=== PATIENT | male | born 1960 | race Caucasian/White ===

== ENCOUNTER 2017-05-21 23:26 | Emergency (ER) | payer MEDICAID ==
[~2017-05-21] VITALS: Ht 170.2 cm; Wt 71.6 kg
[~2017-05-21 23:26] MED LIST: ACAM333T7 PO; BUPR150T73 PO; DIPH1TAB PO; HYDR25CA PO; TRAZ100T15 PO
[2017-05-21 23:29] VITALS: BP 127/80
[2017-05-22] MEDS ORDERED: KETOROLAC 30 MG/1 ML ONE (00:19)
[2017-05-22] MEDS ORDERED: METHOCARBAMOL 750 MG TABLET ONE ×2 (00:19)
[2017-05-22] MEDS ORDERED: KETOROLAC 30 MG/1 ML IM ONE (00:30)
[2017-05-22] MEDS ORDERED: METHOCARBAMOL 750 MG TABLET PO ONE (00:30)
[2017-05-22] MEDS ORDERED: TAMS0.4C2 PO (00:41)
[2017-05-22] MEDS ORDERED: BUPR150T73 PO (00:41)
== END 2017-05-22 01:55 | disposition home or self-care (01) ==
LOC: ED 05-22 01:42
DX: M54.5 Low back pain (principal); M62.830 Muscle spasm of back
CPT/HCPCS: 72110; 96372; 99284; J1885

== ENCOUNTER 2017-06-07 14:27 | Emergency (ER) | payer MEDICAID ==
[~2017-06-07] VITALS: Ht 170.2 cm; Wt 71.9 kg
[~2017-06-07 14:27] MED LIST changes: +TAMS0.4C2 PO
[2017-06-07 14:28] VITALS: BP 96/62
[2017-06-07] MEDS ORDERED: KETOROLAC 30 MG/1 ML IM ONE (16:00)
[2017-06-07] MEDS ORDERED: KETOROLAC 30 MG/1 ML ONE (16:08)
[2017-06-07] MEDS ORDERED: DIAZEPAM 5 MG/ML, 2ML IM STA (16:09)
[2017-06-07] MEDS ORDERED: DIAZEPAM 5 MG TABLET ONE (16:27)
== END 2017-06-07 17:46 | disposition home or self-care (01) ==
LOC: ED 16:39
DX: M54.5 Low back pain (principal); Z85.07 Personal history of malignant neoplasm of pancreas
CPT/HCPCS: 96372; 99284; J1885; J3360

== ENCOUNTER 2017-06-19 13:00 | Emergency (ER) | payer MEDICAID ==
[~2017-06-19] VITALS: Ht 170.2 cm; Wt 68.4 kg
[2017-06-19 13:09] VITALS: BP 99/46
[2017-06-19] MEDS ORDERED: SODIUM CHLORIDE FLUSH 10ML SYR IVF ONE (13:30)
[2017-06-19] MEDS ORDERED: SODIUM CHLORIDE 0.9% 1,000ML IVBOLUS ONE (13:30)
[2017-06-19 13:49] LABS: BLOOD UREA NITROGEN 16 mg/dL (7-18)
[2017-06-19 13:54] LABS: ASPARTATE AMINO TRANSFERASE 24 U/L (15-37)
[2017-06-19] MEDS ORDERED: POTASSIUM CHLORIDE 20 MEQ TAB.ER.PRT PO ONE (14:30)
== END 2017-06-19 14:19 | disposition left against medical advice (07) ==
LOC: ED 14:13
DX: E87.6 Hypokalemia (principal); R53.1 Weakness; Z59.0 Homelessness
CPT/HCPCS: 36415; 80053; 85025; 93005; 96360; 99285; J7030

== ENCOUNTER 2017-12-03 21:39 | Inpatient (IN) | payer MEDICAID ==
[~2017-12-03] VITALS: Ht 170.2 cm; Wt 62.8 kg
[2017-12-03] MEDS ORDERED: DIAZ5TAB4 PO (21:49)
[2017-12-03] MEDS ORDERED: CYCL5TAB PO (21:49)
[2017-12-03] MEDS ORDERED: DIPH1TAB6 PO (21:49)
[2017-12-03] MEDS ORDERED: SODIUM CHLORIDE 0.9% 1,000ML IVBOLUS ONE ×2 (22:00→23:30)
[2017-12-03] MEDS ORDERED: ONDANSETRON 2MG/ML, 2ML IVPush ONE (22:00)
[2017-12-03] MEDS ORDERED: SODIUM CHLORIDE FLUSH 10ML SYR IVF ONE (22:00)
[2017-12-03] MEDS ORDERED: ONDANSETRON 2MG/ML, 2ML ONE (22:03)
[2017-12-03 22:33] LABS: BASOPHILS % (AUTO) 0 % (0-1); EOSINOPHILS % (AUTO) 0 % (1-7); LYMPHOCYTES # (AUTO) 0.22 x10^3/uL (1-3.4); LYMPHOCYTES % (AUTO) 3 % (22-44); MD NO; MEAN CORPUSCULAR HEMOGLOBIN 31.3 pg (27.5-34.5); MEAN CORPUSCULAR HGB CONC 33.1 g/dL (33.2-36.2); MEAN CORPUSCULAR VOLUME 94.6 fL (81-97); MEAN PLATELET VOLUME 8.3 fL (7.4-10.4); MONOCYTES % (AUTO) 9 % (2-9); NEUTROPHILS # (AUTO) 6.71 x10^3/uL (1.8-6.8); NEUTROPHILS % (AUTO) 88 % (42-75); PLATELET COUNT 205 x10^3/uL (130-400); RED BLOOD COUNT 4.23 x10^6/uL (4.38-5.82); RED CELL DISTRIBUTION WIDTH 15.6 % (9.4-14.8)
[2017-12-03 22:44] LABS: INTERNATIONAL NORMALIZED RATIO 0.92 (0.93-1.1); PROTHROMBIN TIME 9.6 Seconds (9.6-11.5)
[2017-12-03 22:48] LABS: ALANINE AMINOTRANSFERASE 24 U/L (12-78); ALBUMIN 4.3 g/dL (3.4-5.0); ANION GAP 24 mmol/L (5-15); CALCIUM 8.6 mg/dL (8.5-10.1); CHLORIDE 94 mmol/L (98-107); CREATININE 3.03 mg/dL (0.7-1.3)
[2017-12-03 22:50] LABS: ALKALINE PHOSPHATASE 62 U/L (45-117); BILIRUBIN,TOTAL 2.6 mg/dL (0.2-1.0)
[2017-12-04] MEDS ORDERED: PANTOPRAZOLE 80 MG in SODIUM CHLORIDE 0.9% 100 ML IV SCH (00:30)
[2017-12-04] MEDS ORDERED: PANTOPRAZOLE 80 MG in SODIUM CHLORIDE 0.9% 50 ML IV ONE (00:30)
[2017-12-04 01:50] LABS: ACETONE, SERUM Moderate(40mg/dL) mg/dL (Negative)
[2017-12-04] MEDS ORDERED: NS + 20MEQ KCL 1,000 ML IV SCH (02:28)
[2017-12-04] MEDS ORDERED: OXYcodone IR 5MG TABLET PO PRN (02:30)
[2017-12-04] MEDS ORDERED: NITROGLYCERIN 0.4 MG BOTTLE (25 TABS) SL PRN (02:30)
[2017-12-04] MEDS ORDERED: LORazepam 1MG TABLET PO PRN ×4 (02:30)
[2017-12-04] MEDS ORDERED: ENALAPRILAT 1.25 MG/ML, 2ML IVPush PRN (02:30)
[2017-12-04] MEDS ORDERED: PROMETHAZINE 25 MG/ML, 1ML IM PRN (02:30)
[2017-12-04] MEDS ORDERED: ONDANSETRON 2MG/ML, 2ML IVPush PRN (02:30)
[2017-12-04] MEDS ORDERED: LORazepam 2 MG/ML, 1ML IV PRN ×5 (02:30)
[2017-12-04] MEDS ORDERED: POLYETHYLENE GLYCOL 17 GM PACKET PO PRN (02:30)
[2017-12-04] MEDS ORDERED: ONDANSETRON ODT 4 MG PO PRN (02:30)
[2017-12-04 04:10] VITALS: BP 106/66
[2017-12-04 06:03] LABS: BASOPHILS # (AUTO) 0.04 x10^3/uL (0-0.1); BASOPHILS % (AUTO) 1 % (0-1); EOSINOPHILS % (AUTO) 0 % (1-7); LYMPHOCYTES # (AUTO) 0.47 x10^3/uL (1-3.4); LYMPHOCYTES % (AUTO) 8 % (22-44); MD NO; MEAN CORPUSCULAR HGB CONC 34.8 g/dL (33.2-36.2); MEAN CORPUSCULAR VOLUME 91.9 fL (81-97); MEAN PLATELET VOLUME 7.7 fL (7.4-10.4); MONOCYTES # (AUTO) 0.86 x10^3/uL (0.2-0.8); MONOCYTES % (AUTO) 15 % (2-9); NEUTROPHILS # (AUTO) 4.42 x10^3/uL (1.8-6.8); NEUTROPHILS % (AUTO) 76 % (42-75); PLATELET COUNT 163 x10^3/uL (130-400); RED BLOOD COUNT 3.45 x10^6/uL (4.38-5.82); RED CELL DISTRIBUTION WIDTH 15.4 % (9.4-14.8)
[2017-12-04 06:12] LABS: ANION GAP 11 mmol/L (5-15); CHLORIDE 109 mmol/L (98-107)
[2017-12-04 06:13] LABS: CREATININE 1.67 mg/dL (0.7-1.3)
[2017-12-04 06:29] LABS: HEMOGLOBIN A1C 4.6 % (4.2-6.3)
[2017-12-04] MEDS: POTASSIUM CHLORIDE 20 MEQ, MAGNESIUM SULFATE 2 GM, THIAMINE 100 MG, MVI ADULT 10 ML, FO... IV SCH ×2 (06:30→12:55)
[2017-12-04] MEDS ORDERED: POTASSIUM PHOSPHATE 44 MEQ in SODIUM CHLORIDE 0.9% 500 ML IV ONE ×2 (07:00→20:30)
[2017-12-04 07:24] VITALS: BP 111/62
[2017-12-04] MEDS: MULTIVITAMINS/MINERALS TABLET PO SCH ×2 (10:33→11:22)
[2017-12-04] MEDS: SENNA/DOCUSATE TABLET PO SCH ×2 (10:33→11:23)
[2017-12-04] MEDS: BUPROPION SR 150 MG TABLET PO SCH ×2 (10:34→11:23)
[2017-12-04] MEDS: PANTOPRAZOLE 40 MG IV IVPush SCH (11:23)
[2017-12-04 12:43] LABS: ANION GAP 10 mmol/L (5-15); CALCIUM 8.1 mg/dL (8.5-10.1); CHLORIDE 111 mmol/L (98-107)
[2017-12-04 12:45] LABS: CREATININE 1.43 mg/dL (0.7-1.3)
[2017-12-04 12:52] VITALS: BP 109/64
[2017-12-04 17:28] LABS: ANION GAP 9 mmol/L (5-15); CALCIUM 8.4 mg/dL (8.5-10.1); CHLORIDE 114 mmol/L (98-107); CREATININE 1.17 mg/dL (0.7-1.3)
[2017-12-04 17:48] LABS: BASOPHILS # (AUTO) 0.03 x10^3/uL (0-0.1); BASOPHILS % (AUTO) 0 % (0-1); EOSINOPHILS # (AUTO) 0.03 x10^3/uL (0-0.4); EOSINOPHILS % (AUTO) 1 % (1-7); LYMPHOCYTES # (AUTO) 1.23 x10^3/uL (1-3.4); LYMPHOCYTES % (AUTO) 19 % (22-44); MD SCAN; MEAN CORPUSCULAR HEMOGLOBIN 31.6 pg (27.5-34.5); MEAN CORPUSCULAR HGB CONC 33.8 g/dL (33.2-36.2); MEAN CORPUSCULAR VOLUME 93.6 fL (81-97); MEAN PLATELET VOLUME 8.4 fL (7.4-10.4); MONOCYTES # (AUTO) 0.69 x10^3/uL (0.2-0.8); MONOCYTES % (AUTO) 10 % (2-9); NEUTROPHILS # (AUTO) 4.68 x10^3/uL (1.8-6.8); NEUTROPHILS % (AUTO) 70 % (42-75); PLATELET COUNT 134 x10^3/uL (130-400); RED BLOOD COUNT 3.55 x10^6/uL (4.38-5.82); RED CELL DISTRIBUTION WIDTH 15.6 % (9.4-14.8)
[2017-12-04 19:31] VITALS: BP 116/73
[2017-12-04] MEDS ORDERED: POTASSIUM PHOS 4.4 MEQ/ML IV ONE (20:30)
[2017-12-05] MEDS: NS + 20MEQ KCL 1,000 ML IV SCH ×2 (00:33→12:48)
[2017-12-05 03:26] VITALS: BP 110/66
[2017-12-05 05:51] LABS: BASOPHILS # (AUTO) 0.01 x10^3/uL (0-0.1); BASOPHILS % (AUTO) 0 % (0-1); EOSINOPHILS # (AUTO) 0.08 x10^3/uL (0-0.4); EOSINOPHILS % (AUTO) 2 % (1-7); LYMPHOCYTES % (AUTO) 24 % (22-44); MD NO; MEAN CORPUSCULAR HEMOGLOBIN 31.7 pg (27.5-34.5); MEAN CORPUSCULAR HGB CONC 34.3 g/dL (33.2-36.2); MEAN CORPUSCULAR VOLUME 92.5 fL (81-97); MEAN PLATELET VOLUME 8.5 fL (7.4-10.4); MONOCYTES # (AUTO) 0.54 x10^3/uL (0.2-0.8); MONOCYTES % (AUTO) 11 % (2-9); NEUTROPHILS # (AUTO) 3.23 x10^3/uL (1.8-6.8); NEUTROPHILS % (AUTO) 64 % (42-75); PLATELET COUNT 110 x10^3/uL (130-400); RED BLOOD COUNT 3.33 x10^6/uL (4.38-5.82); RED CELL DISTRIBUTION WIDTH 15.3 % (9.4-14.8)
[2017-12-05 05:57] LABS: ALANINE AMINOTRANSFERASE 18 U/L (12-78); ALKALINE PHOSPHATASE 46 U/L (45-117); BILIRUBIN,TOTAL 1.8 mg/dL (0.2-1.0); CALCIUM 8.2 mg/dL (8.5-10.1); CREATININE 0.79 mg/dL (0.7-1.3); TOTAL PROTEIN 5.6 g/dL (6.4-8.2)
[2017-12-05 05:59] LABS: ANION GAP 8 mmol/L (5-15); CHLORIDE 114 mmol/L (98-107)
[2017-12-05] MEDS: POTASSIUM CHLORIDE 20 MEQ, MAGNESIUM SULFATE 2 GM, THIAMINE 100 MG, MVI ADULT 10 ML, FO... IV SCH (06:30)
[2017-12-05 07:41] VITALS: BP 128/83
[2017-12-05] MEDS: POTASSIUM CHLORIDE 20 MEQ, MAGNESIUM SULFATE 1 GM, MVI ADULT 10 ML, THIAMINE 100 MG, FO... IV SCH (08:12)
[2017-12-05] MEDS: BUPROPION SR 150 MG TABLET PO SCH (08:12)
[2017-12-05] MEDS: SENNA/DOCUSATE TABLET PO SCH (08:12)
[2017-12-05] MEDS: PANTOPRAZOLE 40 MG IV IVPush SCH (08:12)
[2017-12-05] MEDS: MULTIVITAMINS/MINERALS TABLET PO SCH (08:12)
[2017-12-05 08:28] VITALS: BP 130/81
[2017-12-05] MEDS: LORazepam 0.5MG TABLET PO PRN ×3 (08:34→18:32)
[2017-12-05 10:01] LABS: MICROSCOPIC AUTO
[2017-12-05 10:05] LABS: CULTURE INDICATED? NO
[2017-12-05 12:52] VITALS: BP 122/78
[2017-12-05 20:50] VITALS: BP 126/77
[2017-12-06] MEDS ORDERED: NS + 20MEQ KCL 1,000 ML IV SCH (02:28)
[2017-12-06 02:30] VITALS: BP 130/83
[2017-12-06 04:02] VITALS: BP 124/73
[2017-12-06 05:20] LABS: ANION GAP 6 mmol/L (5-15); CHLORIDE 106 mmol/L (98-107)
[2017-12-06 05:23] LABS: CALCIUM 8.5 mg/dL (8.5-10.1); CREATININE 0.66 mg/dL (0.7-1.3)
[2017-12-06 06:55] VITALS: BP 123/78
[2017-12-06 07:49] LABS: BASOPHILS # (AUTO) 0.01 x10^3/uL (0-0.1); BASOPHILS % (AUTO) 0 % (0-1); EOSINOPHILS # (AUTO) 0.15 x10^3/uL (0-0.4); EOSINOPHILS % (AUTO) 3 % (1-7); LYMPHOCYTES # (AUTO) 1.04 x10^3/uL (1-3.4); LYMPHOCYTES % (AUTO) 24 % (22-44); MD NO; MEAN CORPUSCULAR HEMOGLOBIN 31.4 pg (27.5-34.5); MEAN CORPUSCULAR HGB CONC 34.2 g/dL (33.2-36.2); MEAN CORPUSCULAR VOLUME 92.1 fL (81-97); MEAN PLATELET VOLUME 8.3 fL (7.4-10.4); MONOCYTES # (AUTO) 0.38 x10^3/uL (0.2-0.8); MONOCYTES % (AUTO) 9 % (2-9); NEUTROPHILS % (AUTO) 64 % (42-75); PLATELET COUNT 115 x10^3/uL (130-400); RED BLOOD COUNT 3.49 x10^6/uL (4.38-5.82); RED CELL DISTRIBUTION WIDTH 15.1 % (9.4-14.8)
[2017-12-06] MEDS: PANTOPRAZOLE 40 MG IV IVPush SCH (08:55)
[2017-12-06] MEDS: POTASSIUM CHLORIDE 20 MEQ, MAGNESIUM SULFATE 1 GM, MVI ADULT 10 ML, THIAMINE 100 MG, FO... IV SCH (08:55)
[2017-12-06] MEDS: BUPROPION SR 150 MG TABLET PO SCH (08:55)
[2017-12-06] MEDS: SENNA/DOCUSATE TABLET PO SCH (08:55)
[2017-12-06] MEDS: MULTIVITAMINS/MINERALS TABLET PO SCH (08:55)
[2017-12-06 12:09] VITALS: BP 124/76
[2017-12-06 20:24] VITALS: BP 120/75
[2017-12-07 03:55] VITALS: BP 113/72
[2017-12-07 06:49] LABS: ANION GAP 8 mmol/L (5-15); CALCIUM 8.5 mg/dL (8.5-10.1); CHLORIDE 101 mmol/L (98-107)
[2017-12-07 06:50] LABS: CREATININE 0.85 mg/dL (0.7-1.3)
[2017-12-07 08:00] VITALS: BP 121/80
[2017-12-07] MEDS: SENNA/DOCUSATE TABLET PO SCH (08:23)
[2017-12-07] MEDS: PANTOPRAZOLE 40 MG IV IVPush SCH (08:23)
[2017-12-07] MEDS: MULTIVITAMINS/MINERALS TABLET PO SCH (08:23)
[2017-12-07] MEDS: BUPROPION SR 150 MG TABLET PO SCH (08:23)
[2017-12-07 13:05] VITALS: BP 123/73
== END 2017-12-07 16:57 | disposition home or self-care (01) | DRG 896 ==
LOC: ED 23:59 → EDIP 12-04 02:01 → 4EST 12-04 03:34
PROVIDERS: ADMIT Family Medicine; ATTEND Family Medicine
DX: F10.239 Alcohol dependence with withdrawal, unspecified (principal); K22.6 Gastro-esophageal laceration-hemorrhage syndrome; N17.9 Acute kidney failure, unspecified; E83.39 Other disorders of phosphorus metabolism; R17 Unspecified jaundice; G62.9 Polyneuropathy, unspecified; E86.0 Dehydration; R73.9 Hyperglycemia, unspecified; E87.6 Hypokalemia; F32.9 Major depressive disorder, single episode, unspecified; Z86.14 Personal history of Methicillin resistant Staphylococcus aureus infection; Z85.07 Personal history of malignant neoplasm of pancreas; Z79.899 Other long term (current) drug therapy
CPT/HCPCS: 36415; 71045; 74176; 80048; 80053; 81001; 82010; 82800; 83036; 83690; 83735; 83930; 84100; 85025; 85610; 85730; 86850; 86900; 93005; 96361; 96374; J2405; J3411; J3475; J3480; J7042; Q0162; C9113; J2060; J7030; J7040

== ENCOUNTER → 2018-05-28 | Outpatient (CLI) | payer MEDICAID ==
[~2018-05-28] MED LIST changes: +CYCL5TAB PO; +DIAZ5TAB4 PO; +DIPH1TAB6 PO
== END | disposition home or self-care (01) ==
LOC: CARD 08:37
PROVIDERS: ATTEND Emergency Medicine
DX: G62.9 Polyneuropathy, unspecified (principal); B35.1 Tinea unguium
CPT/HCPCS: 95886; 95909

== ENCOUNTER 2020-02-06 20:32 | Emergency (ER) | payer MEDICAID ==
[~2020-02-06] VITALS: Ht 170.2 cm; Wt 71.3 kg
--- NOTE | 2020-02-06 20:43 | NUR ---
Pt YULIYA SHARIF from [employer] d/t needing assistance with ambulation. Pt reports he has been drinking today. Pt unable to give full medical hx or prescriptions and stated "there are so many, I just need a minute". Pt reports he was seen here earlier for left eye pain. Pt on room air. Pt able to ambulate to restroom with slightly unsteady gait. Pt able to follow simple commands.
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
--- NOTE | 2020-02-06 20:52 | NUR ---
Pt ambulated back from restroom reporting he still needed to pee. Pt provided chair and gurney to sit in. Pt oriented to urinal at bedside.
--- NOTE | 2020-02-06 21:13 | NUR ---
Pt resting on [facility]. Pulse ox applied.
--- NOTE | 2020-02-06 21:35 | NUR ---
Pt attempted to ambulate to restroom but gait was unsteady. RN redirected pt to room and had pt sit on gurney. Pt handed urinal.
--- NOTE | 2020-02-06 22:42 | NUR ---
Pt sleeping on gurney. Positive chest rise and fall noted.
--- NOTE | 2020-02-06 22:52 | NUR ---
PT WAS SITTING IN DOOR THRESHHOLD OF ROOM AND MORALES WITH DR ARIAS AT PT SIDE, BRAKE MECHANIC UNKOWN IF PT FELL. BRAKE MECHANIC HELPED PT UP AND TO BATHROOM AND BACK AND SECURED PT IN HIS BED WITH BILATERAL RAILS UP. PT ALSO PROVIDED A WARM BLANKET AND PILLOW BY BRAKE MECHANIC. PT HAD NO COMPLAINTS.
[2020-02-06 23:02] VITALS: BP 114/62
--- NOTE | 2020-02-06 23:02 | NUR ---
Pt moved to 41 via [employer]. VS retaken. Pt remains on pulse ox/HR monitor. Report to BEVERLY Diego
--- NOTE | 2020-02-06 23:39 | NUR ---
Pt ambulated to restroom with moderate assistance.
--- NOTE | 2020-02-07 00:44 | NUR ---
Pt eating at this time. In no distress, will continue to monitor
--- NOTE | 2020-02-07 01:15 | NUR ---
Pt ambulated to restroom with assistance.
--- NOTE | 2020-02-07 02:21 | NUR ---
PT UP TO THE BATHOOM ( IN RM ) WILL DO ROAD TEST NOW
--- NOTE | 2020-02-07 02:53 | NUR ---
Pt failed road test. Pt resting in bed, will continue to monitor.
--- NOTE | 2020-02-07 04:19 | NUR ---
attempted road test again, pt unsuccessful
== END 2020-02-07 05:57 | disposition home or self-care (01) ==
LOC: ED 02-07 04:55
DX: F10.120 Alcohol abuse with intoxication, uncomplicated (principal); Z72.9 Problem related to lifestyle, unspecified; Y90.9 Presence of alcohol in blood, level not specified
CPT/HCPCS: 99283

== ENCOUNTER → 2020-02-06 | Emergency (ER) | payer MEDICAID ==
[~2020-02-06] VITALS: Ht 170.2 cm; Wt 77.0 kg
[~2020-02-06] MED LIST changes: +TRAZ-175 PO; -TRAZ100T15 PO
[2020-02-06 10:05] VITALS: BP 116/71
--- NOTE | 2020-02-06 10:46 | NUR ---
right eye 20/50, both eyes 20/50, left eye could not even read largest letter of visual acuity chart with own eyeglasses on. . NILDA Morgan notified.
--- NOTE | 2020-02-06 11:25 | NUR ---
PT GIVEN DC INSTRUCTIONS AND SCRIPT, EDUCATED TO FOLLOW UP IMMEDIATELY WITH OPTHOMOLOGIST. PT A&O, RESPS EVEN AND UNLABORED, AMBULATORY TO DC WITH STEADY GAIT.
== END ==
LOC: ED 11:04
DX: H10.32 Unspecified acute conjunctivitis, left eye (principal); Z90.89 Acquired absence of other organs
CPT/HCPCS: 99283

== ENCOUNTER 2020-03-22 20:07 | Emergency (ER) | payer MEDICAID ==
[~2020-03-22] VITALS: Ht 175.3 cm; Wt 71.0 kg
[2020-03-22 20:10] VITALS: BP 136/88
--- NOTE | 2020-03-22 21:08 | NUR ---
PT SLEEPING WITH NO COMPLAINTS
--- NOTE | 2020-03-22 22:39 | NUR ---
pt continues to sleep with no complaints, rousable to voice
--- NOTE | 2020-03-22 22:59 | NUR ---
pt ambulates to BR with steady gait
--- NOTE | 2020-03-23 01:01 | NUR ---
pt continues to sleep with no complaints, rousable to voice
== END 2020-03-23 01:40 | disposition home or self-care (01) ==
LOC: ED 03-23 01:25
DX: F10.229 Alcohol dependence with intoxication, unspecified (principal); Y90.0 Blood alcohol level of less than 20 mg/100 ml
CPT/HCPCS: 99283

== ENCOUNTER 2020-04-06 13:26 | Emergency (ER) | payer MEDICAID ==
[~2020-04-06] VITALS: Ht 170.2 cm; Wt 62.0 kg
[2020-04-06 13:29] VITALS: BP 117/69
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
--- NOTE | 2020-04-06 13:59 | NUR ---
Note symone in [facility] - 04/06/20 at 1417 by RAFI PT RESTING, PLAN FOR ADMIT. GIVEN WATER. VSS. NO FURTHER NEEDS.
--- NOTE | 2020-04-06 14:16 | NUR ---
GIVEN MEAL TRAY
--- NOTE | 2020-04-06 14:42 | NUR ---
Patient/Caregiver given discharge instructions and they have confirmed that they understand the instructions. Patient ambulatory with steady gait.
== END 2020-04-06 14:48 | disposition home or self-care (01) ==
LOC: ED 14:05
DX: F10.129 Alcohol abuse with intoxication, unspecified (principal); F33.9 Major depressive disorder, recurrent, unspecified; Z72.9 Problem related to lifestyle, unspecified
CPT/HCPCS: 99283

== ENCOUNTER 2020-04-16 19:02 | Emergency (ER) | payer MEDICAID ==
[~2020-04-16] VITALS: Ht 170.2 cm; Wt 75.0 kg
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
--- NOTE | 2020-04-16 21:00 | NUR ---
PT RESTING IN [facility]. VSS. NAD.
--- NOTE | 2020-04-16 21:21 | NUR ---
ASSUMED CARE OF PATIENT AT THIS TIME FROM RIVKA PAUL.
--- NOTE | 2020-04-16 22:06 | NUR ---
PT RESTING IN ROOM, NADN AT THIS TIME.
--- NOTE | 2020-04-16 23:28 | NUR ---
Pt resting in room, still not ambulating safely. Will recheck in 1 hour.
--- NOTE | 2020-04-16 23:46 | NUR ---
RESTING ON GURNEY, NAD, EVEN AND UNLABORED RESPIRATIONS. VSS.
[2020-04-17 00:39] VITALS: BP 119/75
== END 2020-04-17 00:57 | disposition home or self-care (01) ==
LOC: ED 21:52
DX: S00.91XA Abrasion of unspecified part of head, initial encounter (principal); F10.120 Alcohol abuse with intoxication, uncomplicated; R94.31 Abnormal electrocardiogram [ECG] [EKG]; G89.29 Other chronic pain; Z85.07 Personal history of malignant neoplasm of pancreas; Z90.49 Acquired absence of other specified parts of digestive tract; Y90.9 Presence of alcohol in blood, level not specified; W18.30XA Fall on same level, unspecified, initial encounter; Y93.89 Activity, other specified; Y92.410 Unspecified street and highway as the place of occurrence of the external cause; Y99.8 Other external cause status
CPT/HCPCS: 70450; 93005; 99285

== ENCOUNTER 2020-05-27 04:13 | Emergency (ER) | payer MEDICAID ==
[~2020-05-27] VITALS: Ht 170.2 cm; Wt 72.9 kg
--- NOTE | 2020-05-27 04:50 | NUR ---
THIS TECH DID EKG
[2020-05-27] MEDS ORDERED: ASPIRIN 81 MG TABLET EC ONE (05:28)
[2020-05-27] MEDS ORDERED: KETOROLAC 30 MG/1 ML IVPush ONE (05:30)
[2020-05-27] MEDS ORDERED: ASPIRIN 81 MG TABLET CHEW PO ONE (05:30)
[2020-05-27] MEDS ORDERED: ASPIRIN 81 MG TABLET CHEW ONE (05:33)
[2020-05-27 05:54] LABS: BASOPHILS # (AUTO) 0.04 x10^3/uL (0-0.1); BASOPHILS % (AUTO) 1 % (0-1); EOSINOPHILS # (AUTO) 0.33 x10^3/uL (0-0.4); EOSINOPHILS % (AUTO) 4 % (1-7); LYMPHOCYTES # (AUTO) 1.84 x10^3/uL (1-3.4); LYMPHOCYTES % (AUTO) 21 % (22-44); MD NO; MEAN CORPUSCULAR HEMOGLOBIN 31.6 pg (27.5-34.5); MEAN CORPUSCULAR HGB CONC 33.7 g/dL (33.2-36.2); MEAN PLATELET VOLUME 8.1 fL (7.4-10.4); MONOCYTES # (AUTO) 0.79 x10^3/uL (0.2-0.8); MONOCYTES % (AUTO) 9 % (2-9); NEUTROPHILS # (AUTO) 5.85 x10^3/uL (1.8-6.8); NEUTROPHILS % (AUTO) 66 % (42-75); PLATELET COUNT 308 x10^3/uL (130-400); RED BLOOD COUNT 4.57 x10^6/uL (4.38-5.82); RED CELL DISTRIBUTION WIDTH 13.9 % (9.4-14.8)
[2020-05-27 06:02] LABS: ALANINE AMINOTRANSFERASE 34 U/L (12-78); ALBUMIN 4.3 g/dL (3.4-5.0); ANION GAP 9 mmol/L (5-15); CALCIUM 8.8 mg/dL (8.5-10.1); CHLORIDE 114 mmol/L (98-107); CREATININE 1.08 mg/dL (0.7-1.3)
[2020-05-27 06:06] LABS: ALKALINE PHOSPHATASE 58 U/L (45-117); BILIRUBIN,TOTAL 0.8 mg/dL (0.2-1.0); TOTAL PROTEIN 7.5 g/dL (6.4-8.2); TROPONIN I < 0.015 ng/mL (0.000-0.045)
--- NOTE | 2020-05-27 06:42 | NUR ---
pt with c/o dizziness and cp that started today. sternal, non radiating.
[2020-05-27 07:09] VITALS: BP 116/65
== END 2020-05-27 07:11 | disposition home or self-care (01) ==
LOC: ED 05:17
DX: R07.89 Other chest pain (principal); F10.220 Alcohol dependence with intoxication, uncomplicated; Y90.9 Presence of alcohol in blood, level not specified
CPT/HCPCS: 36415; 71045; 80053; 80307; 83880; 84484; 85025; 93005; 99285

== ENCOUNTER 2020-06-24 11:55 | Emergency (ER) | payer MEDICAID ==
[~2020-06-24] VITALS: Ht 170.2 cm; Wt 80.0 kg
--- NOTE | 2020-06-24 12:09 | NUR ---
PT brought in by Rebeca from [facility] for dizziness for two days, no recent trauma, respiratory symptoms, or CP.
--- NOTE | 2020-06-24 12:23 | NUR ---
steady ambulation to bathroom with standy by assist.
[2020-06-24 12:45] LABS: BASOPHILS # (AUTO) 0.04 x10^3/uL (0-0.1); BASOPHILS % (AUTO) 1 % (0-1); EOSINOPHILS # (AUTO) 0.27 x10^3/uL (0-0.4); EOSINOPHILS % (AUTO) 4 % (1-7); LYMPHOCYTES # (AUTO) 1.27 x10^3/uL (1-3.4); LYMPHOCYTES % (AUTO) 19 % (22-44); MD NO; MEAN CORPUSCULAR HEMOGLOBIN 31.3 pg (27.5-34.5); MEAN CORPUSCULAR HGB CONC 33.3 g/dL (33.2-36.2); MEAN CORPUSCULAR VOLUME 93.9 fL (81-97); MEAN PLATELET VOLUME 8.2 fL (7.4-10.4); MONOCYTES # (AUTO) 0.78 x10^3/uL (0.2-0.8); MONOCYTES % (AUTO) 11 % (2-9); NEUTROPHILS # (AUTO) 4.53 x10^3/uL (1.8-6.8); NEUTROPHILS % (AUTO) 66 % (42-75); PLATELET COUNT 301 x10^3/uL (130-400); RED BLOOD COUNT 4.58 x10^6/uL (4.38-5.82); RED CELL DISTRIBUTION WIDTH 13.5 % (9.4-14.8)
[2020-06-24 12:57] LABS: ALANINE AMINOTRANSFERASE 21 U/L (12-78); ANION GAP 9 mmol/L (5-15); CHLORIDE 104 mmol/L (98-107); CREATININE 1.08 mg/dL (0.7-1.3)
[2020-06-24 13:01] LABS: ALKALINE PHOSPHATASE 62 U/L (45-117); BILIRUBIN,TOTAL 1.1 mg/dL (0.2-1.0); TOTAL PROTEIN 7.6 g/dL (6.4-8.2); TROPONIN I < 0.015 ng/mL (0.000-0.045)
[2020-06-24 13:20] VITALS: BP 111/70
--- NOTE | 2020-06-24 13:40 | NUR ---
Meal tray provided.
--- NOTE | 2020-06-24 13:54 | NUR ---
discharge instructions reviewed.
== END 2020-06-24 14:21 | disposition home or self-care (01) ==
LOC: ED 13:26
DX: R55 Syncope and collapse (principal); R42 Dizziness and giddiness; R53.1 Weakness; R07.9 Chest pain, unspecified
CPT/HCPCS: 36415; 71045; 80053; 84484; 85025; 93005; 99285

== ENCOUNTER 2020-08-11 14:28 | Emergency (ER) | payer MEDICAID ==
[~2020-08-11] VITALS: Ht 170.2 cm; Wt 71.3 kg
[2020-08-11] MEDS ORDERED: SODIUM CHLORIDE 0.9% 1,000ML IVBOLUS ONE (15:30)
[2020-08-11] MEDS ORDERED: THIAMINE 100MG TABLET PO ONE (16:30)
[2020-08-11] MEDS ORDERED: THIAMINE 100MG TABLET ONE (16:37)
[2020-08-11 16:38] LABS: BASOPHILS # (AUTO) 0.01 x10^3/uL (0-0.1); BASOPHILS % (AUTO) 0 % (0-1); EOSINOPHILS % (AUTO) 4 % (1-7); LYMPHOCYTES # (AUTO) 1.48 x10^3/uL (1-3.4); LYMPHOCYTES % (AUTO) 31 % (22-44); MD NO; MEAN CORPUSCULAR HEMOGLOBIN 30.8 pg (27.5-34.5); MEAN CORPUSCULAR VOLUME 93.4 fL (81-97); MEAN PLATELET VOLUME 7.6 fL (7.4-10.4); MONOCYTES # (AUTO) 0.57 x10^3/uL (0.2-0.8); MONOCYTES % (AUTO) 12 % (2-9); NEUTROPHILS % (AUTO) 52 % (42-75); PLATELET COUNT 194 x10^3/uL (130-400); RED BLOOD COUNT 4.03 x10^6/uL (4.38-5.82); RED CELL DISTRIBUTION WIDTH 14.6 % (9.4-14.8)
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
[2020-08-11 16:51] LABS: ALANINE AMINOTRANSFERASE 34 U/L (12-78); ALBUMIN 3.6 g/dL (3.4-5.0); ANION GAP 11 mmol/L (5-15); CALCIUM 8.4 mg/dL (8.5-10.1); CHLORIDE 115 mmol/L (98-107); CREATININE 0.92 mg/dL (0.7-1.3)
[2020-08-11 16:53] LABS: ALKALINE PHOSPHATASE 65 U/L (45-117); BILIRUBIN,TOTAL 0.6 mg/dL (0.2-1.0); TOTAL PROTEIN 6.6 g/dL (6.4-8.2)
[2020-08-11 17:16] LABS: MICROSCOPIC NOT IND
[2020-08-11 18:48] VITALS: BP 105/78
== END 2020-08-11 18:50 | disposition home or self-care (01) ==
LOC: ED 15:51
DX: S80.02XA Contusion of left knee, initial encounter (principal); F10.129 Alcohol abuse with intoxication, unspecified; R41.82 Altered mental status, unspecified; R10.9 Unspecified abdominal pain; W01.0XXA Fall on same level from slipping, tripping and stumbling without subsequent striking against object, initial encounter; Y93.89 Activity, other specified; Y92.488 Other paved roadways as the place of occurrence of the external cause; Y99.8 Other external cause status; Y90.0 Blood alcohol level of less than 20 mg/100 ml
CPT/HCPCS: 36415; 80053; 80307; 81003; 85025; 96360; 99283; J7030

== ENCOUNTER 2020-12-29 14:25 | Emergency (ER) | payer MEDICAID ==
[~2020-12-29] VITALS: Ht 170.2 cm; Wt 79.0 kg
[2020-12-29] MEDS ORDERED: LIDOCAINE 2%,20 ML JEL.PF.APP MM ONE ×2 (15:58→16:00)
--- NOTE | 2020-12-29 16:18 | NUR ---
20fr coude catheter inserted. Urojet used. Pt tolerated well. 1300mL tea colored urine drained so far. UA collected and tubed to lab.
[2020-12-29 17:00] LABS: MICROSCOPIC INDICATED
--- NOTE | 2020-12-29 17:14 | NUR ---
RN at bedside- pt look and reports that he feels much better since getting the catheter inserted and bladder draining. Pt sitting up in bed, drinking water per MD instructions. Will DC home with catheter in place.
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
--- NOTE | 2020-12-29 18:30 | NUR ---
XR images back (XR not read yet) but appears to show broken ribs. This RN informing provider. Pt placed on cafeteria monitor.
[2020-12-29 20:14] VITALS: BP 130/67
--- NOTE | 2020-12-29 20:14 | NUR ---
RN at bedside. Pt denies needs at this time. Catheter still draining tea colored urine. 02 sats 99% on RA. Pt conversational, calm.
[2020-12-29] MEDS ORDERED: ACETAMINOPHEN 500 MG TABLET ONE (21:29)
[2020-12-29] MEDS ORDERED: ACETAMINOPHEN 500 MG TABLET PO ONE (21:30)
== END 2020-12-29 17:50 | disposition home or self-care (01) ==
LOC: ED 16:38
DX: R31.0 Gross hematuria (principal); R33.9 Retention of urine, unspecified; R07.9 Chest pain, unspecified
CPT/HCPCS: 51702; 71045; 81001; 87086; 99285

== ENCOUNTER 2021-03-15 12:37 | Emergency (ER) | payer MEDICAID ==
[~2021-03-15] VITALS: Ht 170.2 cm; Wt 76.0 kg
[2021-03-15] MEDS ORDERED: THIAMINE 100MG TABLET PO ONE (13:00)
[2021-03-15 13:20] LABS: BASOPHILS % (AUTO) 0 % (0-1); EOSINOPHILS % (AUTO) 1 % (1-7); LYMPHOCYTES % (AUTO) 12 % (22-44); MEAN CORPUSCULAR HEMOGLOBIN 30.3 pg (27.5-34.5); MEAN CORPUSCULAR HGB CONC 33.4 g/dL (33.2-36.2); MEAN PLATELET VOLUME 7.6 fL (7.4-10.4); MONOCYTES % (AUTO) 7 % (2-9); NEUTROPHILS % (AUTO) 80 % (42-75); PLATELET COUNT 349 x10^3/uL (130-400); RED BLOOD COUNT 5.04 x10^6/uL (4.38-5.82); RED CELL DISTRIBUTION WIDTH 14.7 % (9.4-14.8)
[2021-03-15 13:25] LABS: MD NO
--- NOTE | 2021-03-15 13:25 | NUR ---
ON ARRIVAL, PT PLACED ON ALL ROOM MONITORING. PT STATES HE WANTS DETOX BUT DOESN'T WANT TO GO TO [facility] [employer] WHERE HE WORKED BEFORE. PT AWARE THE [facility] DOESN'T ACCEPT INSURANCE. NO SIGNS OF DETOX AT THIS TIME. PT A/O X 4, NONTREMULOUS, ABLE TO FOLLOW COMMANDS. EKG COMPLETED ON ARRIVAL. CALL LIGHT WITHIN REACH.
[2021-03-15 13:27] LABS: ALANINE AMINOTRANSFERASE 26 U/L (12-78); ALBUMIN 4.3 g/dL (3.4-5.0); ANION GAP 18 mmol/L (5-15); CALCIUM 8.9 mg/dL (8.5-10.1); CHLORIDE 105 mmol/L (98-107); CREATININE 1.21 mg/dL (0.7-1.3)
[2021-03-15 13:29] LABS: ALKALINE PHOSPHATASE 75 U/L (45-117); BILIRUBIN,TOTAL 1.3 mg/dL (0.2-1.0); TOTAL PROTEIN 7.9 g/dL (6.4-8.2)
--- NOTE | 2021-03-15 14:20 | NUR ---
PT SEEN BY SW. SNACKS AND WATER PROVIDED.
--- NOTE | 2021-03-15 14:38 | NUR ---
PER SW, WILL ATTEMPT TO PLACE PT AT [place] FOR DETOX.
--- NOTE | 2021-03-15 16:24 | NUR ---
CALL TO CARA CAAL REGARDING DC TO [facility].
--- NOTE | 2021-03-15 16:42 | NUR ---
PER , [facility] STILL PENDING. CONTINUE TO AWAIT CALL BACK. PT SLEEPING, NAD. CALL LIGHT WITHIN REACH. MEAL TRAY ORDERED.
--- NOTE | 2021-03-15 17:14 | NUR ---
PT ASSISTED WITH URINAL. MEAL TRAY PROVIDED. PT COOPERATIVE WITH CARE.
[2021-03-15 17:16] VITALS: BP 116/71
--- NOTE | 2021-03-15 17:33 | NUR ---
CALL FROM [facility]. [facility] BEDS FOR DETOX AVAILABLE. PT SENT VIA TAXI TO [facility] FOR ASSESSMENT. Addendum: 03/15/21 at 1735 by MILI PT AMBULATORY WITH STEADY GAIT IN MORALES.
== END 2021-03-15 17:39 | disposition home or self-care (01) ==
LOC: ED 15:36
DX: F10.220 Alcohol dependence with intoxication, uncomplicated (principal); I10 Essential (primary) hypertension; Y90.0 Blood alcohol level of less than 20 mg/100 ml
CPT/HCPCS: 36415; 71045; 80053; 80320; 83690; 85025; 93005; 99285; G0480

== ENCOUNTER 2021-08-03 20:40 | Emergency (ER) | payer MEDICAID ==
[~2021-08-03] VITALS: Ht 175.3 cm; Wt 75.9 kg
--- NOTE | 2021-08-03 21:25 | NUR ---
METAL MILLING MACHINE OPERATOR. LOCATED PT IN [facility]. CALLED PT TO TRIAGE. PT INSISTENT ON USING BATHROOM FIRST. TECH TO WAIT FOR PT
[2021-08-03 21:26] VITALS: BP 125/78
--- NOTE | 2021-08-04 00:05 | NUR ---
patient observed to be with steady gait. alert and oriented. walking back and forth in the lobby.
--- NOTE | 2021-08-04 00:34 | NUR ---
PATIENT NOT IN THE LOBBY, NO ANSWER.
== END 2021-08-04 00:46 | disposition left against medical advice (07) ==
LOC: ED 20:45
DX: Z53.21 Procedure and treatment not carried out due to patient leaving prior to being seen by health care provider (principal)

== ENCOUNTER 2021-08-04 03:16 | Emergency (ER) | payer MEDICAID ==
[~2021-08-04] VITALS: Ht 170.2 cm; Wt 73.2 kg
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
--- NOTE | 2021-08-04 05:26 | NUR ---
PT WOKEN UP AND PT A/OX4, PT ABLE TO AMBULATE ON HIS OWN WITH A STEADY GAIT, PTS VITAL SIGNS STABLE, PT STATED THAT HE HAS NO WHERE TO GO AND DOESNT WANT TO GET DISCHARGED TO THE STREET SO THIS RN PROVIDED A CAB VOUCHER TO THE [facility] FOR THE PT
[2021-08-04 05:28] VITALS: BP 112/54
== END 2021-08-04 05:30 | disposition home or self-care (01) ==
LOC: ED 03:30
DX: F10.120 Alcohol abuse with intoxication, uncomplicated (principal); Y90.0 Blood alcohol level of less than 20 mg/100 ml
CPT/HCPCS: 99283